=== PATIENT | male | born 1950 | race Caucasian/White ===

== ENCOUNTER → 2025-02-10 09:47 | Outpatient (BNVA) | payer MEDICARE, OTHER, SELFPAY | PROVIDERS: PCP Physician Assistant; Referring Provider Physician Assistant; Visit Provider Student in an Organized Health Care Education/Training Program | DX: M17.12 Unilateral primary osteoarthritis, left knee (principal) | CPT/HCPCS: 99214 ==

== ENCOUNTER 2025-05-02 01:36 | Outpatient (CLI) | payer MEDICARE, OTHER, SELFPAY ==
[2025-05-02 11:52] LABS: HCT 44.3 % (40.0-50.0); MCH 31.2 pg (27.0-33.0); MCHC 33.9 % (32.0-36.0); MCV 92 fL (80-95); MPV 9.4 fL (8.0-11.0); Platelet Count 207 10^3/uL (130-400); RBC 4.81 10^6/uL (4.36-5.78); RDW 12.4 % (11.8-14.1); RDW-SD 42.2 fL; WBC 5.76 10^3/uL (4.4-10.8)
[2025-05-02 12:28] LABS: Anion Gap 8.7 mmol/L (3-11); BUN 14 mg/dL (7-18); CO2 29.3 mmol/L (21.0-32.0); CREATININE 0.9 mg/dL (0.70-1.30); Calcium 9.3 mg/dL (8.5-10.1); Chloride 106 mmol/L (98-107); Estimated GFR 90.74 (mL/min/1.73m2); Glucose 106 mg/dL (74-106); Potassium 4.2 mmol/L (3.5-5.1); Sodium 144 mmol/L (136-145)
[2025-05-02 12:48] LABS: TSH 0.03 uIU/mL (0.36-3.74)
== END 2025-05-02 01:37 | disposition home or self-care (01) ==
LOC: LBO 01:36 → LBN 11:45
PROVIDERS: Physician Assistant; PCP Physician Assistant; Visit Provider Student in an Organized Health Care Education/Training Program
DX: E03.9 Hypothyroidism, unspecified (principal); M17.12 Unilateral primary osteoarthritis, left knee; Z01.818 Encounter for other preprocedural examination
CPT/HCPCS: 80048; 85027; 84439; 84443

== ENCOUNTER 2025-05-02 11:20 | Outpatient (CLI) | payer MEDICARE, OTHER, SELFPAY ==
--- NOTE | 2025-05-02 11:00 | DI.RAD_ITS ---
Exam(s) XR KNEE LT 1V EXAM: XR KNEE LT 1V CLINICAL HISTORY: TKR planning. TECHNIQUE: 2D digital imaging was performed. COMPARISON: No exams were available for comparison FINDINGS: Single lateral view of the left knee No evidence of fracture. Small amount of increased joint fluid. There is joint space narrowing indicating degenerative change. Bone density normal. No significant osseous lesions. IMPRESSION: Degenerative changes. Small joint effusion. DATA REPOSITORY: RADIATION DOSE DELIVERED:
--- NOTE | 2025-05-02 11:00 | DI.RAD_ITS ---
Exam(s) XR STANDING ALIGNMENT EXAM: XR STANDING ALIGNMENT CLINICAL HISTORY: TKR Planning. TECHNIQUE: 2D digital imaging was performed. COMPARISON: No exams were available for comparison FINDINGS: 3 views There are degenerative changes in the medial compartments of both knees. There is krjh-dl-kimb narrowing of the medial compartment of the left knee and slightly more moderate degenerative changes-narrowing of the medial compartment of the opposite-right knee. Lateral compartments of both knees exhibit normal height and no obvious chondrocalcinosis. Ankles appear unremarkable. There is a E lateral fixation plate across a healed fracture site in the distal half of the left fibula. No other hardware in the lower extremities evident. There are only mild degenerative changes in the hips. SI joints appear unremarkable. IMPRESSION: There is qftt-gu-dwon narrowing of the medial compartment of the left knee and moderate-advanced narrowing of the medial compartment of the opposite-right knee. DATA REPOSITORY: RADIATION DOSE DELIVERED:
== END 2025-05-02 11:21 | disposition home or self-care (01) ==
LOC: DIORS 11:20
PROVIDERS: PCP Physician Assistant; Visit Provider Physician Assistant
DX: M17.12 Unilateral primary osteoarthritis, left knee (principal); Z01.818 Encounter for other preprocedural examination; E03.9 Hypothyroidism, unspecified
CPT/HCPCS: 99024; 73560; 77073

== ENCOUNTER 2025-05-14 06:48 | Day surgery (SDC) | payer MEDICARE, OTHER, SELFPAY ==
[2025-05-14] VITALS (23 sets, daily range): BP systolic 106–144; BP diastolic 56–98; PULSE 63–82; RESP 9–26; TEMP 36.2–36.6; O2SAT 87–99; BMI 33.7
--- NOTE | 2025-05-14 06:28 | W.ANESPRE ---
General Info Date of Service Date Performed: 05/14/25 Height: 5 ft 8 in Weight: 100.698 kg Body Mass Index (BMI): 33.7 Surgical Procedure: Operation Date: 05/14/25 09:40 Proposed Procedure Side Surgeon p Knee Total Arthroplasty Left Maurice Lindsay MD Meds Allergies and Home Medications Allergies Allergy/AdvReac Type Severity Reaction Status Date / Time No Known Allergies Allergy Verified 05/14/25 07:15 Home Medication ?Medication ?Instructions ?Recorded levothyroxine 150 mcg capsule 150 mcg PO DAILY 05/02/25 acetaminophen 500 mg tablet 1,000 mg (2 x 500 mg) PO TID #90 05/14/25 tabs aspirin 81 mg tablet,delayed 81 mg PO BID #60 tabs 05/14/25 release celecoxib 200 mg capsule 200 mg PO BID #60 caps 05/14/25 dexamethasone 4 mg tablet 4 mg PO DAILY #2 tabs 05/14/25 docusate sodium 100 mg capsule 100 mg PO BID PRN #28 caps 05/14/25 gabapentin 300 mg capsule 300 mg PO QHS #14 caps 05/14/25 oxycodone 5 mg tablet 5 mg PO Q4H PRN #18 tabs 05/14/25 pantoprazole 40 mg tablet,delayed 40 mg PO DAILY #14 tabs 05/14/25 release Current Visit Medications: Current Medications Generic Name Dose Route Start Last Admin Trade Name Freq PRN Reason Stop Dose Admin Acetaminophen 1,000 mg 05/14/25 06:00 Acetaminophen 500 Mg Tab PO 05/14/25 23:59 PREOP SUKHWINDER Celecoxib 400 mg 05/14/25 06:00 Celecoxib 200 Mg Cap PO 05/14/25 23:59 PREOP SUKHWINDER Gabapentin 300 mg 05/14/25 06:00 Gabapentin 300 Mg Cap PO 05/14/25 23:59 PREOP SUKHWINDER Ringer's Solution 1,000 mls @ 80 mls/hr 05/14/25 06:00 IV 05/14/25 23:59 INFUSION SUKHWINDER Cefazolin Sodium/Dextrose 2 gm in 50 mls @ 100 mls/hr 05/14/25 06:00 Ancef Duplex IVPB 05/14/25 23:59 PREOP SUKHWINDER Tranexamic Acid/Sodium Chloride 1,000 mg in 100 mls @ 600 mls/hr 05/14/25 06:00 IVPB 05/14/25 23:59 PREOP SUKHWINDER IV Miscellaneous Supplies 1 each 05/14/25 06:00 Iv Access IV 05/14/25 23:59 DIRECTED SUKHWINDER Sodium Chloride 0 ml 05/14/25 06:00 Normal Saline Flush 10 Ml Syr IV 05/14/25 23:59 PRN PRN Sodium Chloride 0 ml 05/14/25 06:00 Normal Saline 10 Ml Vial IJ 05/14/25 23:59 DIRECTED PRN Sterile Water 0 ml 05/14/25 06:00 Water,Injection,Sterile 10 Ml Vial IJ 05/14/25 23:59 DIRECTED PRN PFSH Active Problems Active Problems: Problem Status Onset Code Osteoarthritis of left knee Acute M17.12 Impacted cerumen of both ears Acute H61.23 Asymmetrical sensorineural hearing loss Acute H90.3 Medical History Medical History (Updated 05/12/25 @ 14:28 by Bunny Cunningham) History of broken leg Hx of fracture of arm metal in situ Hypothyroidism Surgical History Surgical History (Updated 05/12/25 @ 14:28 by Bunny Cunningham) History of ankle surgery H/O transurethral resection of bladder tumor (TURBT) Tobacco Smoking/Tobacco Use Status: Former Tobacco Use Passive smoking exposure: No Alcohol Alcohol Intake: never Substance Use Substance use: Never Substance use type: does not use Vital Signs and Lab Results Vital Signs Most Recent Vital Signs in EMR: Temp Pulse Resp BP Pulse Ox 36.4 C L 76 17 144/98 H 99 05/14/25 07:07 05/14/25 07:07 05/14/25 07:07 05/14/25 07:07 05/14/25 07:07 Lab Results Complete Blood Count: WBC, (4.4-10.8) 5.76 10^3/uL 05/02/25, 11:00 RBC, (4.36-5.78) 4.81 10^6/uL 05/02/25, 11:00 Hgb, (13.5-17.5) 15.0 g/dL 05/02/25, 11:00 Hct, (40.0-50.0) 44.3 % 05/02/25, 11:00 Plt Count, (130-400) 207 10^3/uL 05/02/25, 11:00 Complete Metabolic Panel: Sodium, (136-145) 144 mmol/L 05/02/25, 11:00 Potassium, (3.5-5.1) 4.2 mmol/L 05/02/25, 11:00 Chloride, (98-107) 106 mmol/L 05/02/25, 11:00 Carbon Dioxide, (21.0-32.0) 29.3 mmol/L 05/02/25, 11:00 BUN, (7-18) 14 mg/dL 05/02/25, 11:00 Creatinine, (0.70-1.30) 0.9 mg/dL 05/02/25, 11:00 Est GFR (CKD-EPI 2020), (mL/min/1.73m2) 90.74 05/02/25, 11:00 Calcium, (8.5-10.1) 9.3 mg/dL 05/02/25, 11:00 Glucose, (74-106) 106 mg/dL 05/02/25, 11:00 Thyroid Panel: TSH, (0.36-3.74) 0.03 uIU/mL L 05/02/25, 11:00 Anesthesia Assessment and Plan Anesthesia History Personal History: No History of Anesthesia Complications Family History: No Family History of Anesthesia Complications Exercise Tolerance Exercise Tolerance: Metabolic Equivalents>4 Cardiac & Pulmonary Exam Cardiac Exam: Normal S1/S2 Heart Sounds Pulmonary Exam: Clear Bilateral Breath Sounds Implantable Cardiac Device Does patient have a Pacemaker or an ICD?: No Airway Exam Known Difficult Airway: No Mallampati Class: 4 Mouth Opening: Normal (> 3cm) Thyromental Distance: Less than 3 cm Neck Range of Motion: Limited ROM Neck Circumference: Normal Teeth Condition: Normal Dentition ASA Classification ASA Score: ASA 2 Emergency Case?: No NPO Status NPO Status: NPO Clears >2 hours, Solids >8 hours Anesthesia Plan Resuscitation Status: Full Code Anesthesia Technique: Spinal Anesthesia Airway Planned: Natural Airway Pain Management: Surgeon and patient request nerve block Monitors Used: Standard Monitors Preoperative Comments:: 74 yo male for TKA. Sig PMHx: hypothyroid (levothyroxine. currently on 150 mcg, being down titrated. has no signs of hyperthyroid/hypothyroid). former smoker (1981). Occ reflux, takes no med. Approp NPO.
--- NOTE | 2025-05-14 07:24 | W.PM.DSUDISC ---
Date of service: 05/14/25 Discharge Plan Disposition Patient Disposition: Home Condition: Good Discharge Details Reason For Visit: TKR L Knee Attending Provider: Maurice Lindsay Primary Care Provider: Kash Marcelo Home Meds and New Rx's Prescriptions: New acetaminophen 500 mg tablet 1,000 mg PO TID Qty: 90 3RF aspirin 81 mg tablet,delayed release (DR/EC) 81 mg PO BID Qty: 60 0RF celecoxib 200 mg capsule 200 mg PO BID Qty: 60 0RF dexamethasone 4 mg tablet 4 mg PO DAILY Qty: 2 0RF docusate sodium 100 mg capsule 100 mg PO BID PRNQty: 28 0RF pantoprazole 40 mg tablet,delayed release (DR/EC) 40 mg PO DAILY Qty: 14 0RF gabapentin 300 mg capsule 300 mg PO QHS Qty: 14 0RF oxycodone 5 mg tablet 5 mg PO Q4H PRNQty: 18 0RF Continued levothyroxine 150 mcg capsule 150 mcg PO DAILY Discharge Instructions Additional Instructions: Total Knee Discharge Instructions Activity: The most important activity is to walk and to work on gentle motion (both flexion and extension). You should try to take short walks a few times a day. It is important that when resting you work on keeping the knee straight. Avoid putting a pillow behind the knee as this will encourage flexion. Work on range of motion exercises as provided by Physical Therapy. - Start outpatient physical therapy within 2 weeks. - You should wear the YOVANI hose on both legs for 2 weeks. You may remove these at night. You may also use any compression sock in place of the YOVANI hose. - Utilize [employer] to review exercises, see videos on exercises and obtain basic information pertaining to your surgery and your recovery. Dressing: Remove the Toro wrap by 2 days after your surgery and put on the YOVANI stocking given to you from the hospital. Keep the surgical dressing (underneath the TORO wrap) in place for at least one week. After the first week it may be removed and replaced with light gauze and tape or nothing. The wound and dressing may get wet after 3 days but avoid soaking the dressing or otherwise it will need to be changed. Many people prefer covering the dressing with cling wrap (saran wrap) to minimize it from getting soaked. If it gets wet, just pat dry. If it starts to peel off then it will need to be changed. Medications: - You should take Tylenol and anti-inflammatory Celebrex as your primary pain control medications. If the Celebrex is too expensive or not covered, please call the office for another alternative (Advil/Ibuprofen or Naproxen/Aleve) - You have been prescribed a stronger pain medication Oxycodone for breakthrough pain, take as needed as prescribed. - You have also been prescribed a stomach acid reduction agent Pantoprozole to help reduce stomach acid and reflux. - You have been prescribed Gabapentin to take at night for restlessness and nerve pain. - You will be taking Aspirin 81mg twice a day for DVT prevention unless instructed otherwise. - You have also been prescribed Decadron to take to control post-operative nausea and pain. You will start this tomorrow. - If you have constipation you should take Colace or Miralax (both xiac-woz-[id number]). It takes most people 3-4 days to have a bowel movement. Follow-up: 2 weeks If you have any acute concerns or questions, please do not hesitate to contact the office at [phone]. You may contact Dr. Lindsay with any questions after hours through the hospital at [phone] or on his cell phone at [phone]. Referrals: Maurice Lindsay MD [ [facility] STAFF PHYSICIAN, Orthopaedic Surgical] Equipment/Supplies: Walker Activity:: Activity as Tolerated Shower/Bathe:: 72 hours Diet:: As Tolerated Discharge Orders Discharge Orders: Discharge Order (Routine); Ordered 05/14/25 Ordered By: Deandre Weinberg DS: Diagnosis Discharge Diagnosis (1) Osteoarthritis of left knee: Status: Acute
[2025-05-14] MEDS: Celecoxib 200 MG CAP 400 MG PO (07:43)
[2025-05-14] MEDS: Gabapentin 300 MG CAP PO (07:43)
[2025-05-14] MEDS: Acetaminophen 500 MG TAB 1000 MG PO (07:43)
[2025-05-14] MEDS: Lactated Ringers 1,000 ML 80 ML IV (07:46)
--- NOTE | 2025-05-14 08:02 | W.ANESNERVE ---
Nerve Block Single Injection Procedure Date and Time Date Performed: 05/14/25 Procedure Start: 07:50 Location Where Procedure Performed Procedure Location: Day Surgery Unit Reason Performed: Postoperative Analgesia Requesting Provider: Maurice Lindsay Timeout Performed Timeout Performed: Yes Monitoring Used ECG, Blood Pressure and SpO2 Sterility Sterility: Hand Hygiene, Surgical Cap, Surgical Mask, Sterile Gloves and Chlorhexidine Sedation Given During Procedure Sedation Given (Indicate Dose Given): Propofol IV Dose:: 20 mg Patient Mental Status Patient Mental Status: Sedate with meaningful communication Nerve Block 1st Nerve Block: Laterality: Left Block Type: Adductor Canal Ultrasound Image Saved?: Yes Needle / Catheter Used: 100mm SonoPlex II Local Anesthetic Bolus (Indicate Dose Given): Lidocaine used for local infiltration of skin, Injected in 3-5ml increments after negative blood aspiration and Bupivacaine 0.25% Dose:: 8 mL Additives (Indicate Dose Given): None Ultrasound: Sterile probe cover and gel used Nerve Stimulator: Supplement to Ultrasound use and No twitch or parasthesia noted < 0.5 mA (<0.8) Paresthesia: None Procedure Tolerated: No Complications Procedure Outcome: Successful Performed By: Leodan Mckenzie 2nd Nerve Block: Laterality: Left Block Type: Other (anterior femoral cutaneous nerves. ) Ultrasound Image Saved?: Yes Needle / Catheter Used: 100mm SonoPlex II Local Anesthetic Bolus (Indicate Dose Given): Injected in 3-5ml increments after negative blood aspiration and Bupivacaine 0.25% Dose:: 5 mL Additives (Indicate Dose Given): None Ultrasound: Sterile probe cover and gel used Nerve Stimulator: Supplement to Ultrasound use and No twitch or parasthesia noted < 0.5 mA (<0.8) Paresthesia: None Procedure Tolerated: No Complications Procedure Outcome: Successful Performed By: Leodan Mckenzie
[2025-05-14] MEDS: ceFAZolin 2 GM/50 ML BAG IVPB (09:22)
--- NOTE | 2025-05-14 09:22 | W.PM.OP ---
Operative Note Operative Note PRE-OP DIAGNOSIS: Left Knee Osteoarthritis POST-OP DIAGNOSIS: same PROCEDURE: Left Total Knee Replacement SURGEON: Maurice Lindsay STRUCTURAL ANALYST: Yana Weinberg ANESTHESIA TYPE: Spinal Refer to Anesthesia Record ESTIMATED BLOOD LOSS: 50 PATHOLOGY: none sent TOURNIQUET TIME: 0 COMPLICATIONS: None Patient was transported to: PACU Patient's condition: stable Implants: 1. Depuy Attune Cementless Cruciate Retaining Femoral Component, Size 6 2. Depuy Attune Cementless Fixed Bearing Tibial Component, Size 7 3. Depuy Attune 6x6mm CR/FB Poly Indications: I have seen Bryan in clinic for symptoms of knee arthritis, confirmed with radiographic findings. He has exhausted nonoperative methods and was having significant limitations in daily function and desired better function and less pain. I discussed the technical details of a knee replacement. I explained the risks of the procedure to include, but not limited to, bleeding, infection, pain, stiffness, fracture, damage to nerves and vessels, damage to muscles and tendons, loosening, need for repeat procedure, blood clot and cardiopulmonary demise. Despite these risks, Bryan elected to proceed. Findings: There was significant signs of arthritis involving the medial compartment as well as the trochlea. A large parameniscal cyst was encountered in the medial soft tissues. Procedure Description: Bryan was greeted in the preoperative holding area where the correct side was identified and marked. The consent was reviewed with the patient and signed. The history and physical was updated. All questions were answered. Preoperative medications were administered: Acetaminophen 1000mg, Celebrex 400mg, and Gabapentin 300mg. An adductor canal block was then administered by the anesthesia team in the DSU. He was taken back to the operating room. A spinal anesthestic was then administered. The patient was placed into the supine position on the operating room table. Posts were placed for positioning during the procedure. All bony prominences were well padded. Prophylactic antibiotics in the form of Cefazolin were administered. 1g of Tranxemic Acid was given intravenously within 30 minutes of incision. The left leg was then prepped with Chloraprep and draped in a standard fashion with impervious stockinette. A second prep with Chloraprep was performed prior to application of Iodine impregnated skin protection. A timeout to confirm correct identity, side and site, procedure, allergies, anesthesia, and medical concerns was performed. With the knee in some flexion, a midline incision was made overlying the knee. Full thickness skin flaps were raised once the extensor mechanism was encountered. These were raised medially and laterally. Any bleeding was controlled with electrocautery. Once the extensor mechanism was fully exposed, a medial parapatellar arthrotomy was performed in a flexed position. All bleeding from the arthrotomy and the geniculate arteries was coagulated. A medial subperiosteal peel was performed with electrocautery to the midcoronal plane. Due to the significant varus deformity the entire medial tibial plateau was exposed. The fat pad was removed while keeping the patellar tendon protected. The anterior distal femur synovium was removed for later visualization. The ACL and PCL were resected and the anterior horn of the lateral meniscus was transected. The knee was then flexed with the patella everted. Large osteophytes from the tibia were removed. Large osteophytes from the femur were removed. The tissue in the medial aspect of the knee was quite dense and adherent to the proximal tibia. Slowly the medial soft tissue's were released off of the osteophytes of the medial tibia and a large cyst was exposed in the medial soft tissues, parameniscal cyst. This was evacuated in whole. This allowed better visualization and the remainder of the osteophytes from the medial tibia were removed. Using a step drill, and based on preoperative templating, the femoral canal was entered. This was done with a step drill without any difficulty. The intramedullary distal femoral cut guide was inserted, set to a 6 degree valgus cut and 9mm cut thickness. The distal femoral cut guide was then held in position and pinned. With the soft tissues protected, the distal cut was performed. This was passed over a few times to ensure a planar cut. I then turned attention to the tibia. The extramedullary guide was placed onto the leg. The distal aspect was slid medial to adjust for position of center of ankle and stay in line with shaft of the tibia. Approximately 3-5 degrees of posterior slope was kept in the proximal cutting guide. The center of the guide was aligned with the PCL. The stylus was used to assess cut thickness. The medial side, most involved side, was set for a 4mm cut. This was then held in position and pinned into place with 2 additional pins and a cross pin for stability. The medial and lateral collateral ligaments were protected and the cut was performed. With this completed, it was assessed and noted to be of appropriate dimensions. The guide was removed. A spacer block was inserted and the knee was brought into extension. The 6mm spacer block provided full extension, without hyperextension and with stability of both the medial and lateral collateral ligaments was assessed. The pins from the femur and the tibia were then removed. The distal femur was then sized. The anterior stylus was placed onto the lateral ridge of the anterior femur. This indicated a size 6 femur. The external rotation of the guide was adjusted to 3 degrees to match the epicondylar axis, perpendicular to Marlyn?s line. The 4-in-1 cutting guide was the placed. The posterior medial femur cut was evaluated and appeared of good thickness. The spacer block was inserted underneath the cutting guide and stability was confirmed in 90 degrees of flexion. An keiko wing was used to confirm appropriate position of the anterior cut to avoid notching. This cutting guide was ensured to be flush on the cut surface and then pinned into place with headed pins. While protecting the soft tissues, quad tendon, and collateral ligaments, the anterior and posterior cuts were performed with a saw. The central two pins were removed and the posterior and anterior chamfers were cut next. The notch-cutting guide was placed. This was pinned to lateralize the femoral component as much as possible while keeping it flush on the cut surface. This was then pinned into position. A reciprocating saw was used to make the notch cut. A rasp smoothed the cut surfaces. The medial and lateral menisci were removed. A trial femoral component was then inserted, impacted down to the cut surfaces, and the lug holes were drilled. A provisional trial tibial component was placed and the knee was brought through range of motion. There was noted to be excellent extension and flexion. There was no significant instability. The patella was tracking without thumbs. A size 6mm polyethylene component provided the best range of motion and stability with less than 2mm gapping with medial and lateral stress and full extension without significant hyperextension. The tibial cut surface was fully exposed. The tibia was then sized as a 7. The tibia had been previously marked during trialing to correspond to the center of the tibial component to help with rotation. The trial was aligned to this yana, approximately rotated to the medial 1/3rd of the tibial tubercle. The trial was pinned into place. The tibia was prepared with a reamer and a keel punch and lug holes. The trial components were removed. The final components were opened on the back table. The periosteal and capsular tissues, especially posteriorly, around the knee were then systematically injected with a periarticular cocktail consisting of 246mg of Ropivacaine, 0.5mg of Epinephrine, 0.08mg of Clonidine, and 30mg of Ketorolac, diluted to 100cc. The cementless knee components were then placed. Starting with the tibial component, the tibia was subluxed anteriorly and the lug holes of the component were lined up. The tibia was then impacted with an impactor and mallet until the tibial component was in contact with the tibia. Then, the femoral component was inserted. The lug holes were aligned and the component was impacted into position. The final polyethylene component was inserted. The knee was irrigated with Surgiphor Betadine solution. This was allowed to sit in the knee for 3 minutes and then it was irrigated out with saline. The patella was tracking with a no-thumbs technique. An aggressive synovectomy with electrocautery was utilized around the periphery of the patella. A lateral facetectomy was also performed with a rongeur. The capsule was then reapproximated with a No. 1 Vicryl at multiple locations. The capsule was finally closed with a No. 2 Stratafix, barbed suture. Deep tissues were then reapproximated with 0 Vicryl and 2-0 Vicryl. The skin was closed with a running 3-0 Monocryl in a subcuticular fashion. This was reinforced with skin glue. A Mepilex silver dressing was applied along with a [id number] ROBBY wrap. A CryoCuff was applied. Bryan was transferred to the hospital bed without difficulty an suffering no apparent complication. He has a good prognosis. Physical therapy will start today and without restrictions, weight-bearing as tolerated. Aspirin 81mg BID will be used for DVT prophylaxis. Date of Procedure: 05/14/25
[2025-05-14] MEDS: TRANEXAMIC ACID/SOD. CHL. 1,000 MG/100 ML BAG 600 MG IVPB (09:28)
--- NOTE | 2025-05-14 11:27 | PGE_ITS ---
Date of Service Date of service: 05/14/25 Time of Service: 07:30 Assessment and Plan Assessment and plan (1) Hypothyroidism: Assessment and plan: I reviewed the labs with Bryan in regards to his thyroid disease. I had sent the lab work results to his primary care team but the patient did not hear back for any changes. I had my office reach out to them as well and they did not instruct for any changes despite the low TSH and elevated T4. I do have concerns about this current dosing of levothyroxine, however, we will make no changes to this dosing as the primary care team is aware and will manage it. Objective Last Vital Signs Temp 36.5 C 05/14/25 07:50 Pulse 82 05/14/25 07:50 Resp 22 05/14/25 07:50 BP 122/74 05/14/25 07:50 Pulse Ox 98 05/14/25 07:50 Time Spent with Patient Time Spent with Patient: <25 minutes Time was spent: referring, communicating with other health career technology teacher, indepentently interpreting results and counseling the patient
--- NOTE | 2025-05-14 11:42 | W.ANESPOSTOP ---
Postoperative Evaluation Date, Time and Location Date Performed: 05/14/25 Time Performed: 11:42 Patient Location: PACU Vital Signs Most Recent Imported Vital Signs: Most Recent Vital Signs Temp Pulse Resp BP Pulse Ox 36.6 C 69 17 132/80 96 05/14/25 11:18 05/14/25 11:32 05/14/25 11:32 05/14/25 11:32 05/14/25 11:32 Pain Score Most Recent Pain Score: Most Recent Pain Score Pain Level 0 05/14/25 11:28 Assessment Mental Status: Awake (Alert & Oriented to Patient Baseline) Airway and Respiratory Function: Patent airway with normal (patient baseline) respiratory exam Cardiovascular Function: Hemodynamically Stable Hydration Status: Adequately Hydrated Nausea & Vomiting: No Nausea or Vomiting Pain: Pain is tolerable per patient (spinal still waning. ) Peripheral Nerve Block: Regional nerve block not resolved at time of post operative discharge
[2025-05-14] MEDS: Tranexamic Acid 650 MG TAB 1300 MG PO (12:13)
--- NOTE | 2025-05-14 12:22 | IN_ITS ---
PT Notes Visit Reasons: TKR L Knee Physical Therapy Inpatient Initial Evaluation Date: 05/14/2025 Referring Doctor: CHAIM Banks PT Orders: PT CONSULT: Eval/Treat Precautions: Standard. WBAT through the L LE using AD. Patient Profile/Admitting Diagnosis: patient is a 74-year male with degenerative joint disease of the L knee and is S/P L total knee arthroplasty on postopertative day 0. PMHX: All Active Problems (Updated 02/10/25 @ 10:35 by CHAIM Banks) Osteoarthritis of left knee (Acute) Impacted cerumen of both ears (Acute) Asymmetrical sensorineural hearing loss (Acute) Social History/Home Situation: Lives with in a private home with 2 steps to enter with rails on B sides. Independent with all aspects of ADLs prior to surgery. Equipment Owned/DME: FWW, [facility], SANDY Subjective: [place] like he needed to slow down every time he turns as he feels the L knee wobble minimally. Denied headche, chest pain, and lightheadedness throughout session. Objective: General Observation: ROBBY wraps to L LE. Cryocuff to L knee. TEDS to R leg/foot. Mental Status: Alert and oriented as to person, place, time, and purpose. Able to pay attention, focus, and respond appropriately. Pain: 1-2/10 in the L knee with AD. Vital Signs: Closely monitored by nuring staff ROM: Right Lower Extremity: Hip flexion WFL. Hip abduction WFL. Knee flexion WFL. Ankle dorsiflexion WFL. Ankle plantarflexion WFL. Left Lower Extremity: Hip flexion WFL. Hip abduction WFL. Knee flexion 10 degrees to 100 degees. Knee extension -10 degrees. Ankle dorsiflexion WFL. Ankle plantarflexion WFL. Strength: Right Lower Extremity: Hip flexors 5/5. Hip abductors 5/5. Knee flexors 4/5. Knee extensors 4/5. Ankle dorsiflexors 5/5. Ankle plantarflexors 5/5. Left Lower Extremity: Hip flexors 4-/5. Hip abductors 4-/5. Knee flexors 3-/5. Knee extensors 3-/5. Ankle dorsiflexors 4/5. Ankle plantarflexors 5/5.. Bed Mobility/Transfers: Minimal cueing provided for use of B hands as needed for support, movement sequence, AD management, and posture to reduce fall risk and minimize pain report Supine to sit supervision Sit to stand contact guard assist with FWW Stand to sit stand by assist with FWW/arm rest support Bed to toilet seat stand by assist with FWW/arm rest support Bed to reclining chair stand by assist with FWW/arm rest support Gait: facilitated safe and correct performance of level surface ambulation covering a distance of 150 feet using front-wheeled walker and contact guard assist. 2 episodes of L knee wobble noted but no buckling/LOB. Patient needed moderate verbal cueing to ensure that L knee is locked at midstance before advancing the opposite leg and that weight is shifted forward onto walker handles to ensure safety. No report of increased pain in the L knee throughout. Stairs: Guided patient with safe and correct negotiation of 6 x 4-inch steps and 4 x 6- inch steps while holding onto B rails for support with step-to gait pattern requiring moderate verbal cueing ofr correct limb sequence, posture and hand placement. No report of increased pain in the L knee throughout. Balance: Static Sitting: Normal Dynamic Sitting: Normal Static Standing: Fair Dynamic Standing: Fair Special Tests: Mobility Limitations Standardized Measure [facility] AM-PAC 6 clicks Basic Mobility Inpatient Short Form: Raw Score: 23 CMS Score: 11% deficit Informed Consent/Education: Patient was instructed in purpose of PT consult and plan of care. Agreeable to proceed with established PT POC to achieve personal goals. Assessment: Patient requires the use of a front-wheeled walker for all mobility ADL performance to maximize independence and reduce fall risk. Patient presents with clinical signs and symptoms consistent with current/admitting diagnoses that have resulted to mobility limitations, gait instability, generalized weakness, and overall ADL decline as demonstrated by the following impairment level findings: 1. Decreased strength to L knee major muscle groups 2. Impaired standing balance 3. Impaired activity tolerance 4. Limitation of joint range of motion in L knee Impairments are contributing to the following functional limitations: 1. Decline in bed mobility skills 2. Decline in transfer skills 3. Difficulty with ambulation without assistive device 4. Increased completion time for mobility ADL performance 5. Increased risk for falls 6. Difficulty with managing steps alone safely Patient is assessed as a 70508 moderate complexity based on the following: History: 74-year-old female with past medical history as indicated above Examination: Demonstrable impairment in strength, balance, and mobility level with underlying impairments and functional limitations as exhibited above as well as deficit score of 11% utilizing the [facility] Mobility Inpatient Short Form Presentation: Evolving Decision Makin moderate complexity Goals: N/A. PT evaluation and one treatment session only for functional mobility training and HEP instrcution. Plan of Care/Treatment Plan: N/A. PT evaluation and one treatment session only for functional mobility training and HEP instrcution. DISCHARGE RECOMMENDATIONS: Home when medically cleared by orthopedic surgeon. Recommend outpatient PT services in order to optimize functional mobility outcomes and facilitate return to independent community ambulation without an assistive device. TREATMENT CODE/TIME: 02873 x 20 minutes for 1 unit, 29925 x 10 minutes for 1 unit (11:22-11:52). Thank you for the opportunity to participate in the care of this patient. Perlita Kumari PT, DPT, CLT [facility] [place], [place]
== END 2025-05-14 13:23 | disposition home or self-care (01) ==
PROVIDERS: PCP Physician Assistant; Visit Provider Student in an Organized Health Care Education/Training Program
PROC: (CPT 27447; principal; 2025-05-14 09:30)
DX: M17.12 Unilateral primary osteoarthritis, left knee (principal); G89.18 Other acute postprocedural pain
CPT/HCPCS: 27447; 64447; 64450; 97162; 97530; C1776; J0665; J0690; J1100; J2371; J2401; J2405; J2704

== ENCOUNTER 2025-06-02 10:10 | Outpatient (CLI) | payer MEDICARE, OTHER, SELFPAY ==
--- NOTE | 2025-06-02 09:52 | DI.RAD_ITS ---
Exam(s) XR KNEE LT 1V XR STANDING ALIGNMENT EXAM: XR STANDING ALIGNMENT and XR knee LT 1 V CLINICAL HISTORY: 1ST POST OP S/P L TKA. TECHNIQUE: 2D digital imaging was performed. Five images were obtained. COMPARISON: CR XR KNEE LT 1V from 05/02/2025 CR XR STANDING ALIGNMENT from 05/02/2025 FINDINGS: BONES: There are mild degenerative changes seen in the hips, right greater than left. Since the prior examination, the patient has undergone a left total knee arthroplasty. The orthopedic hardware is in good position. No lucencies are seen in or about the orthopedic hardware. There are moderate degenerative changes seen in the medial aspect of the right knee. The ankles are well maintained.The left lower extremity is less than 1 cm longer than the right lower extremity. There is again seen a sideplate and screws in the distal left fibula. SOFT TISSUE: Normal. IMPRESSION: 1. Interval placement of a left total knee arthroplasty which appears in good position. 2. Degenerative changes of the right knee. DATA REPOSITORY: RADIATION DOSE DELIVERED:
== END 2025-06-02 10:11 | disposition home or self-care (01) ==
LOC: DIORS 10:10
PROVIDERS: PCP Physician Assistant; Referring Provider Physician Assistant; Visit Provider Student in an Organized Health Care Education/Training Program
DX: Z47.1 Aftercare following joint replacement surgery (principal); Z96.652 Presence of left artificial knee joint
CPT/HCPCS: 99024; 73560; 77073

== ENCOUNTER → 2025-06-30 09:56 | Outpatient (BNVA) | payer MEDICARE, OTHER, SELFPAY | PROVIDERS: PCP Physician Assistant; Referring Provider Physician Assistant; Visit Provider Physician Assistant | DX: Z47.1 Aftercare following joint replacement surgery (principal); Z96.652 Presence of left artificial knee joint | CPT/HCPCS: 99024 ==

== ENCOUNTER → 2025-07-24 10:14 | Outpatient (BNVA) | payer MEDICARE, OTHER, SELFPAY | PROVIDERS: PCP Physician Assistant; Referring Provider Physician Assistant; Visit Provider Student in an Organized Health Care Education/Training Program | DX: Z47.1 Aftercare following joint replacement surgery (principal); Z96.652 Presence of left artificial knee joint | CPT/HCPCS: 99024 ==